=== PATIENT | female | born 1985 ===

== ENCOUNTER 2016-10-26 22:25 | Emergency (ER) | payer OTHER ==
[2016-10-26 22:38] VITALS: BP 134/88; PULSE 88; RESP 16; TEMP 98; O2SAT 99
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
== END 2016-10-27 01:08 | disposition home or self-care (01) ==
LOC: H.ER 22:25
DX: T76.21XA Adult sexual abuse, suspected, initial encounter (principal)